=== PATIENT | female | born 1955 | race Caucasian/White ===

== ENCOUNTER 2023-08-27 13:34 | Outpatient (CLI) | payer MEDICARE | END 2023-08-27 13:35 | disposition home or self-care (01) | LOC: BICCT 13:34 | PROVIDERS: ATTEND Orthopaedic Surgery | DX: M17.11 Unilateral primary osteoarthritis, right knee (principal) ==

== ENCOUNTER 2023-09-05 13:22 | Outpatient (CLI) | payer MEDICARE ==
[2023-09-05 16:39] LABS: Bilirubin Neg (Negative); Blood, Urine 10 (Negative); Glucose, Urine (Dipstick) Normal (Negative); Ketone, Urine Negative (Negative); Leukocyte 500 (Negative); Nitrite Positive (Negative); Protein, Urine (Dipstick) Negative (Neg-Trace); Urobilinogen Normal mg/dL (Less than 2)
[2023-09-05 16:40] LABS: Clarity Hazy (Clear)
[2023-09-05 16:43] LABS: Prothrombin Time 10.9 sec (9.5-12.1)
[2023-09-05 16:47] LABS: #Basophils 0.06 10x3/uL (0.0-0.2); #Eosinphils 0.21 10x3/uL (0.0-0.5); #Monocytes 0.58 10x3/uL (0.0-1.1); #Neutrophils 4.61 10x3/uL (1.5-8.4); %Basophils 0.8 % (0.0-2.0); %Eosinophils 2.8 % (0.0-6.0); %Lymphocytes 26.9 % (18.0-47.0); %Monocytes 7.8 % (0.0-10.0); %Neutrophils 61.6 % (40.0-75.0); Hemoglobin 14.9 g/dL (12.0-15.5); Mean Corpuscular HGB CONC 33.9 g/dL (32.0-36.0); Mean Corpuscular Hemoglobin 30.6 pg (27.0-33.0); Mean Corpuscular Volume 90.3 fL (81.6-98.3); Mean Platelet Volume 12.5 fL (7.4-10.4); Platelet Count 184 10x3/uL (150-450); RBC Distribution Width 12.5 % (11.5-14.5); Red Blood Cell (RBC) Count 4.87 10x6/uL (3.90-5.03); White Blood Cell (WBC) Count 7.5 10x3/uL (3.5-10.5)
[2023-09-05 17:07] LABS: Anion Gap 15 mmol/L (10-20); BUN (Urea Nitrogen) 9 mg/dL (9.8-20.1); Calc. Creatinine Clearance 0 mL/min (70-130); Calcium 9.5 mg/dL (7.8-10.44); Carbon Dioxide 21 mmol/L (23-31); Chloride 108 mmol/L (98-107); Estimated GFR 79; Glucose 88 mg/dL (80-115); Sodium 140 mmol/L (136-145)
== END 2023-09-05 13:23 | disposition home or self-care (01) ==
LOC: LABBT 13:22
PROVIDERS: ATTEND Orthopaedic Surgery
DX: Z01.818 Encounter for other preprocedural examination (principal); M17.0 Bilateral primary osteoarthritis of knee
CPT/HCPCS: 71046; 80048; 81003; 85025; 85610; 87081; 93005; 93010

== ENCOUNTER 2023-09-10 05:55 | Observation (INO) | payer MEDICARE ==
[2023-09-05 13:59] VITALS: BMI 29.0
[2023-09-10] MEDS ORDERED: Tranexamic Acid 1,000 MG/10 ML VIAL ONE (06:16)
[2023-09-10] MEDS ORDERED: CEFAZOLIN 2 GM VIAL ONE (06:16)
[2023-09-10] MEDS ORDERED: Sodium Chloride 0.9% 200 ML ONE (06:16)
[2023-09-10] MEDS ORDERED: Vancomycin (BATCH) 1.5 GM/300 ML BAG ONE (06:16)
[2023-09-10] MEDS ORDERED: methylPREDNISolone Acetate 40 mg/ml Vial ONE (06:31)
[2023-09-10] MEDS ORDERED: Lidocaine 1% (PF) 30 ML VIAL ONE (06:31)
[2023-09-10] MEDS ORDERED: Bupivacaine PF 0.5% 30 ML VIAL ONE ×2 (06:31→07:11)
[2023-09-10] MEDS ORDERED: fentaNYL PF 100 MCG/2 ML SYRINGE ONE ×2 (06:51→08:03)
[2023-09-10] MEDS ORDERED: PROPOFOL 20 ML ONE (06:51)
[2023-09-10] MEDS ORDERED: Lidocaine 1% PF 5 ML VIAL ONE (06:51)
[2023-09-10] MEDS ORDERED: Dexamethasone 20 MG/5 ML VIAL ONE (06:51)
[2023-09-10] MEDS ORDERED: Ondansetron PF 4 MG/2 ML Vial ONE (06:51)
[2023-09-10] MEDS ORDERED: Midazolam HCl 2 mg/2 ml Vial ONE (07:11)
[2023-09-10] MEDS ORDERED: Bupivacaine HCl 0.5%/Epinephrine 1:200,000/PF 30 ml Vial ONE (07:25)
[2023-09-10] MEDS ORDERED: Acetaminophen 325 MG TAB PO PRN (07:46)
[2023-09-10] MEDS ORDERED: Promethazine HCl 25 MG/ML VIAL IM PRN ×3 (07:46→09:45)
[2023-09-10] MEDS ORDERED: Ondansetron PF 4 MG/2 ML Vial IVP PRN ×2 (07:46→08:15)
[2023-09-10] MEDS ORDERED: Zolpidem Tartrate 5 MG TAB PO PRN ×2 (07:46→08:15)
[2023-09-10] MEDS ORDERED: diphenhydrAMINE 25 MG CAP PO PRN (07:46)
[2023-09-10] MEDS ORDERED: traMADol HCl 50 MG TAB PO PRN ×3 (07:46→08:15)
[2023-09-10] MEDS ORDERED: fentaNYL 50 mcg/mL 1 mL Vial SLOW IVP PRN ×2 (07:46→08:06)
[2023-09-10] MEDS ORDERED: HYDROcodone/Acetaminophen 10/325 mg Tablet PO PRN ×3 (07:46→08:15)
[2023-09-10] MEDS ORDERED: Vancomycin 1.5 GM in Sodium Chloride 0.9% 250 ML 300 ML IVPB SCH (08:00)
[2023-09-10] MEDS ORDERED: PHENYLEPHRINE-NS 100 MCG/ML 10 ML SYRINGE ONE (08:01)
[2023-09-10] MEDS ORDERED: Ropivacaine 0.2% 550 ML 550 ML NERVE BLCK SCH (08:15)
[2023-09-10] MEDS ORDERED: Ondansetron HCl/PF 4 MG/2 ML Vial IVP PRN (09:45)
[2023-09-10] MEDS ORDERED: PACU-Morphine 4MG/ML VIAL SLOW IVP PRN (09:45)
[2023-09-10] MEDS: Sodium Chloride 0.9% 1,000 ML IV SCH (11:33)
[2023-09-10] MEDS: Tranexamic Acid 1,000 MG in Sodium Chloride 0.9% 100 ML IVPB SCH (11:33)
[2023-09-10] MEDS: Rosuvastatin 20 MG TAB PO SCH (11:33)
[2023-09-10] MEDS: Aspirin 81 mg Enteric Coated Tablet PO SCH (11:33)
[2023-09-10] MEDS: Anastrozole 1 MG TAB PO SCH (11:33)
[2023-09-10] MEDS: Venlafaxine HCl XR 75 MG CAP PO SCH (11:34)
[2023-09-10] MEDS: Ketorolac Tromethamine 30 MG (1 mL) VIAL IVP SCH (11:35)
[2023-09-10] MEDS ORDERED: Ketorolac Tromethamine 30 MG (1 mL) VIAL IVP SCH (14:00)
[2023-09-10] MEDS: CEFAZOLIN 2 GM in Sodium Chloride 0.9% 100 ML IVPB SCH (15:08)
[2023-09-10] MEDS: Vancomycin (BATCH) 1.5 GM in Premix 1 BAG IVPB SCH (17:27)
[2023-09-10] MEDS: traZODone HCl 150 MG TAB PO SCH (20:25)
[2023-09-11 05:28] LABS: Hemoglobin 11.8 g/dL (12.0-16.0); Mean Corpuscular HGB CONC 32.8 g/dL (32.0-36.0); Mean Corpuscular Hemoglobin 29.7 pg (27.0-31.0); Mean Corpuscular Volume 90.7 fL (78.0-98.0); Mean Platelet Volume 12.2 fL (7.4-10.4); Platelet Count 154 10x3/uL (130-400); RBC Distribution Width 12.6 % (11.5-14.5); Red Blood Cell (RBC) Count 3.97 mill/uL (4.20-5.40)
[2023-09-11] MEDS: Ferrous Gluconate 324 MG TAB PO SCH (08:51)
[2023-09-11] MEDS: Senokot S 8.6-50 MG TAB PO SCH (08:51)
[2023-09-11] MEDS: Multivitamin W/ Minerals 1 TAB PO SCH (08:52)
[2023-09-11 11:19] VITALS: BP 129/72; TEMP 98.4
[2023-09-11] MEDS: HYDROcodone/Acetaminophen 10/325 mg Tablet PO PRN (11:38)
[2023-09-13] MEDS ORDERED: CeleCOXIB 100 MG CAP PO SCH (09:00)
== END 2023-09-11 11:46 | disposition home or self-care (01) ==
LOC: SDC 05:55 → SURG A 07:47
PROVIDERS: ADMIT Orthopaedic Surgery; ATTEND Orthopaedic Surgery
PROC: 0SRC0JZ Replacement of Right Knee Joint with Synthetic Substitute, Open Approach (ICD-10-PCS; principal; 2023-09-10)
PROC: 3E0T3BZ Introduction of Anesthetic Agent into Peripheral Nerves and Plexi, Percutaneous Approach (ICD-10-PCS; 2023-09-10)
DX: M17.0 Bilateral primary osteoarthritis of knee (principal); F17.200 Nicotine dependence, unspecified, uncomplicated; Z90.710 Acquired absence of both cervix and uterus; Z96.662 Presence of left artificial ankle joint
CPT/HCPCS: 27447; 64447; 85027; 97110 ×2; 97116 ×2; 97530; A4306; C1713; C1776; C1889; J0665; J1030; J1100; J1885 ×2; J2001; J2250; J2405; J2704; J2795; J3370; J3490; 36415

== ENCOUNTER 2024-03-10 11:53 | Outpatient (CLI) | payer MEDICARE | END 2024-03-10 11:54 | disposition home or self-care (01) | LOC: CT 11:53 | PROVIDERS: ATTEND Orthopaedic Surgery | DX: M17.12 Unilateral primary osteoarthritis, left knee (principal); M25.462 Effusion, left knee; M71.22 Synovial cyst of popliteal space [Baker], left knee; M19.072 Primary osteoarthritis, left ankle and foot | CPT/HCPCS: 71046; 80048; 81003; 85025; 85610; 87081; 93005; 93010 ==

== ENCOUNTER 2024-03-15 06:25 | Observation (INO) | payer MEDICARE ==
[2024-03-10 13:25] VITALS: BMI 27.3
[2024-03-15] MEDS ORDERED: Tranexamic Acid 1,000 MG/10 ML VIAL ONE ×2 (07:05→10:41)
[2024-03-15] MEDS ORDERED: Sodium Chloride 0.9% 100 ML ONE (07:05)
[2024-03-15] MEDS ORDERED: Vancomycin 1 GM/200 ML (FROZEN) BAG ONE (07:05)
[2024-03-15] MEDS ORDERED: Ropivacaine 0.5% HCl/PF (150 MG/30 ML VIAL) ONE (07:15)
[2024-03-15] MEDS ORDERED: fentaNYL 50 mcg/mL 1 mL Vial ONE ×2 (07:15→09:39)
[2024-03-15] MEDS ORDERED: Midazolam HCl 2 mg/2 ml Vial ONE (07:15)
[2024-03-15] MEDS ORDERED: CEFAZOLIN 2 GM VIAL ONE (08:22)
[2024-03-15] MEDS ORDERED: PHENYLEPHRINE-NS 100 MCG/ML 10 ML SYRINGE ONE ×2 (08:31→08:56)
[2024-03-15] MEDS ORDERED: Ondansetron PF 4 MG/2 ML Vial ONE (08:31)
[2024-03-15] MEDS ORDERED: Lidocaine 1% PF 5 ML VIAL ONE (08:31)
[2024-03-15] MEDS ORDERED: Dexamethasone 20 MG/5 ML VIAL ONE (08:31)
[2024-03-15] MEDS ORDERED: fentaNYL PF 100 MCG/2 ML SYRINGE ONE (08:31)
[2024-03-15] MEDS ORDERED: PROPOFOL 20 ML ONE (08:31)
[2024-03-15] MEDS ORDERED: Ondansetron PF 4 MG/2 ML Vial IVP PRN ×2 (09:00→10:07)
[2024-03-15] MEDS ORDERED: Promethazine HCl 25 MG/ML VIAL IM PRN ×2 (09:00→10:07)
[2024-03-15] MEDS ORDERED: Ropivacaine 0.2% 550 ML 550 ML NERVE BLCK SCH (09:00)
[2024-03-15] MEDS ORDERED: fentaNYL 50 mcg/mL 1 mL Vial SLOW IVP PRN (09:00)
[2024-03-15] MEDS ORDERED: HYDROcodone/Acetaminophen 10/325 mg Tablet PO PRN ×2 (09:00)
[2024-03-15] MEDS ORDERED: traMADol HCl 50 MG TAB PO PRN (09:00)
[2024-03-15] MEDS ORDERED: Bupivacaine PF 0.5% 30 ML VIAL ONE (09:11)
[2024-03-15] MEDS ORDERED: diphenhydrAMINE 25 MG CAP PO PRN (10:07)
[2024-03-15] MEDS ORDERED: Acetaminophen 325 MG TAB PO PRN (10:07)
[2024-03-15] MEDS ORDERED: Zolpidem Tartrate 5 MG TAB PO PRN (10:07)
[2024-03-15] MEDS ORDERED: Gabapentin 300 MG CAP PO PRN (10:08)
[2024-03-15] MEDS ORDERED: Tranexamic Acid 1,000 MG in Sodium Chloride 0.9% 100 ML IVPB SCH (10:15)
[2024-03-15] MEDS ORDERED: Pantoprazole DR 40 MG TAB PO PRN (10:25)
[2024-03-15] MEDS: Sodium Chloride 0.9% 1,000 ML IV SCH (12:08)
[2024-03-15] MEDS: Ketorolac Tromethamine 30 MG (1 mL) VIAL IVP SCH (12:25)
[2024-03-15] MEDS: CEFAZOLIN 2 GM in Sodium Chloride 0.9% 100 ML IVPB SCH (15:12)
[2024-03-15] MEDS: Vancomycin (BATCH) 1.5 GM in Premix 1 BAG IVPB SCH (20:13)
[2024-03-15] MEDS: Aspirin 81 mg Enteric Coated Tablet PO SCH (20:14)
[2024-03-15] MEDS: Oxybutynin 5 MG TAB PO SCH (20:14)
[2024-03-15] MEDS: Rosuvastatin 20 MG TAB PO SCH (20:14)
[2024-03-15] MEDS: Zolpidem Tartrate 5 MG TAB PO PRN (20:14)
[2024-03-15] MEDS: Senokot S 8.6-50 MG TAB PO SCH (20:14)
[2024-03-15] MEDS: Ferrous Gluconate 324 MG TAB PO SCH (20:14)
[2024-03-15] MEDS: traZODone HCl 150 MG TAB PO SCH (20:16)
[2024-03-15 23:31] VITALS: BMI 27.3
[2024-03-16 05:59] LABS: Hematocrit 36.1 % (36.0-47.0); Hemoglobin 11.9 g/dL (12.0-16.0); Mean Corpuscular Hemoglobin 30.6 pg (27.0-31.0); Mean Corpuscular Volume 92.8 fL (78.0-98.0); Mean Platelet Volume 11.8 fL (7.4-10.4); Platelet Count 140 10x3/uL (130-400); RBC Distribution Width 13.1 % (11.5-14.5); Red Blood Cell (RBC) Count 3.89 mill/uL (4.20-5.40)
[2024-03-16] MEDS: CeleCOXIB 100 MG CAP PO SCH (07:58)
[2024-03-16] MEDS: Venlafaxine HCl XR 150 MG CAP PO SCH (07:58)
[2024-03-16] MEDS: Anastrozole 1 MG TAB PO SCH (07:59)
[2024-03-16] MEDS: Multivitamin W/ Minerals 1 TAB PO SCH (07:59)
[2024-03-16] MEDS: traMADol HCl 50 MG TAB PO PRN (08:03)
[2024-03-16 08:10] VITALS: BP 138/84; TEMP 98.1
[2024-03-16] MEDS ORDERED: Aspirin 81 mg Enteric Coated Tablet PO SCH (09:00)
== END 2024-03-16 10:20 | disposition home or self-care (01) ==
LOC: SDC 06:25 → SURG B 12:02 → SDC 17:29 → SURG B 17:29
PROVIDERS: ADMIT Orthopaedic Surgery; ATTEND Orthopaedic Surgery
PROC: 0SRD0JZ Replacement of Left Knee Joint with Synthetic Substitute, Open Approach (ICD-10-PCS; principal; 2024-03-15)
DX: M17.0 Bilateral primary osteoarthritis of knee (principal); F32.A Depression, unspecified; E78.00 Pure hypercholesterolemia, unspecified; I10 Essential (primary) hypertension; Z90.710 Acquired absence of both cervix and uterus; Z79.899 Other long term (current) drug therapy; Z98.890 Other specified postprocedural states; Z96.651 Presence of right artificial knee joint; F17.200 Nicotine dependence, unspecified, uncomplicated
CPT/HCPCS: 0055T; 27447; 36415; 85027; A4306; C1713; C1776; C1889; J0665; J1100; J1885; J2250; J2405; J2704; J2795; J3010; J3370